=== PATIENT | female | born 1975 | race Caucasian/White ===

== ENCOUNTER 2019-01-16 10:07 | Day surgery (SDC) | payer OTHER ==
[2019-01-16] MEDS ORDERED: MIDAZOLAM 1 MG/ML 2 ML INJ ×2 (12:04)
[2019-01-16] MEDS ORDERED: FENTAnyl 50 MCG/ML VIAL (12:04)
== END 2019-01-16 13:11 | disposition home or self-care (01) ==
LOC: GIL 10:07
DX: K64.8 Other hemorrhoids (principal); Z80.0 Family history of malignant neoplasm of digestive organs
CPT/HCPCS: 45378; 84703